=== PATIENT | female | born 2000 | race Caucasian/White ===

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

== ENCOUNTER 2021-04-14 10:03 | Emergency (ER) | payer OTHER ==
[~2021-04-14] VITALS: Ht 167.6 cm; Wt 55.8 kg
[~2021-04-14 10:03] MED LIST: CLEOCIN HCL300 MG PO; IBUPROFEN800 MG PO; ULTRAM50 MG PO; VENTOLIN HFA18 GM INH
== END 2021-04-14 12:33 | disposition home or self-care (01) ==
LOC: ED 10:03
DX: J06.9 Acute upper respiratory infection, unspecified (principal); Z88.0 Allergy status to penicillin
CPT/HCPCS: 71046; 99284-25